=== PATIENT | female | born 1965 | race Caucasian/White ===

== ENCOUNTER 2018-12-30 07:55 | Day surgery (SDC) | payer OTHER ==
[~2018-12-30] VITALS: Ht 170.2 cm; Wt 104.0 kg
[~2018-12-30 07:55] MED LIST: PROG100C5 PO
[2018-12-30 08:42] VITALS: Ht 170.2 cm; Wt 104.0 kg
[2018-12-30 09:08] VITALS: BP 142/70; PULSE 74; RESP 16
[2018-12-30] MEDS ORDERED: PROPOFOL 20 ML ONE ×2 (09:09→09:33)
[2018-12-30] MEDS ORDERED: FENTAnyl 50 MCG/ML VIAL ONE (09:25)
[2018-12-30] MEDS ORDERED: GLUCAGON 1 MG INJ ONE (09:26)
[2018-12-30 09:30] VITALS: BP 128/71; PULSE 64; RESP 23
[2018-12-30 09:44] VITALS: BP 123/65; PULSE 60; RESP 19
[2018-12-30 09:59] VITALS: BP 125/59; PULSE 56; RESP 22
== END 2018-12-30 11:19 | disposition home or self-care (01) ==
LOC: GIL 07:55
PROVIDERS: ATTEND Internal Medicine Gastroenterology
DX: Z12.11 Encounter for screening for malignant neoplasm of colon (principal); D12.5 Benign neoplasm of sigmoid colon
CPT/HCPCS: 88305; J1610; J3010